=== PATIENT | female | born 1945 | race Caucasian/White ===

== ENCOUNTER → 2019-04-14 | Outpatient (CLI) | payer MEDICARE ==
[~2019-04-14] MED LIST: ALPR0.25; ASPI81TA26 PO; CLOP75TA2 PO; HYDR25TAB PO; ISOS30TAB PO; LORA-674 PO; METF500T13 PO; ONDA4TAB5; RANI150T14 PO; ROSU10TA6 PO; SERT-155 PO; TIZA4TAB4 PO; VALS1TAB66 PO
--- NOTE | 2019-04-14 16:53 | REP ---
Clinical: Right lower extremity pain Technique: Real time up scale and color Doppler evaluation of the right lower extremity arterial vasculature using linear high frequency transducer. Findings: Moderate generalized atherosclerotic changes are appreciated causing monophasic wave patterns from the distal superficial femoral artery to the ankle. PSV(cm/sec) LEFT Common femoral artery 266.1 cm/sec (triphasic) Profunda femoris artery 269.0 cm/sec (biphasic) Proximal superficial femoral artery 141.0 cm/sec (biphasic) Mid superficial femoral artery 108.6 cm/sec (biphasic) Distal superficial femoral artery 137.5 cm/sec (monophasic) Popliteal artery 95.2 cm/sec (monophasic) Proximal HILARIO 33.3 cm/sec (monophasic) Tibioperoneal trunk 92.5 cm/sec (monophasic) Proximal PLASTIC EXTRUDING MACHINE OPERATOR 99.6 cm/sec (monophasic) Distal PLASTIC EXTRUDING MACHINE OPERATOR 100.9 cm/sec (monophasic) Distal HILARIO 26.3 cm/sec (monophasic) Impression: Moderate generalized atherosclerotic changes causing monophasic wave patterns through the right lower extremity arterial structures with low velocity noted through the distal anterior tibial artery. No focal area of stenosis identified. Electronically Signed by Milo Curtis MD 04/14/2019 04:44 P
== END ==
LOC: M RAD 15:37
PROVIDERS: ATTEND Physician Assistant
DX: I70.201 Unspecified atherosclerosis of native arteries of extremities, right leg (principal)

== ENCOUNTER → 2019-04-29 | Outpatient (CLI) | payer MEDICARE ==
[~2019-04-29] MED LIST changes: +ACETAMINOPHEN 325 MG TAB As Ordered ONE; +BUPIVACAINE HCL 0.5% 10 ML VIAL As Ordered ONE; +HEPARIN 1,000 UNITS/ML 10ML VIAL (FOR RADIOLOGY& DIALYSIS ONLY) As Ordered ONE; +ISOVUE-300 61% 50ML VIAL (Q9967) As Ordered ONE; +LIDOCAINE 2% MDV 20 ML VIAL As Ordered ONE; +MIDAZOLAM INJ 2 MG/2 ML VIAL (J2250) As Ordered ONE; +VARE05TA PO; +diphenhydrAMINE INJ 50MG/ML VIAL (J1200) As Ordered ONE; +fentaNYL 100 MCG/2 ML INJECTION (J3010) As Ordered ONE
[2019-04-29 15:49] VITALS: BP 165/70
--- NOTE | 2019-05-28 09:26 | REPIR ---
DATE OF PROCEDURE: 04/29/2019 ATTENDING PHYSICIAN: Dr. Reta Cohen METAL FABRICATION SUPERVISOR: Elke Griffin and Windy Moore PREOPERATIVE DIAGNOSIS: Bilateral lower extremity claudication, right greater than left. Diabetes mellitus. Continued tobacco use with smoking of cigarettes. Right great toe pain and discoloration. 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 POSTOPERATIVE DIAGNOSIS: Bilateral lower extremity claudication, right greater than left. Diabetes mellitus. Continued tobacco use with smoking of cigarettes. Right great toe pain and discoloration. 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 PROCEDURE: Aortogram, iliofemoral angiogram, selective right common femoral artery catheter placement with right lower extremity angiogram, selective right superficial femoral artery catheter placement with right lower extremity angiogram, left lower extremity angiogram via the left common femoral arterial sheath, MYNX closure of the left common femoral arteriotomy using the MYNX closure device. INDICATION: The patient is a 73-year-old female with pain in both lower extremities and diabetes mellitus and tobacco use who will undergo angiography with possible angioplasty stent and/or atherectomy. Risks, benefits and alternative treatment options were discussed with the patient. ANESTHESIA: Local with 20 mL of 2% lidocaine mixed with 0.5% Marcaine, Benadryl 50 mg. FLUORO TIME: 1.5 minutes. CONTRAST: 11 mL of Isovue-300. HEPARIN: None. COMPLICATIONS: None. DRAINS: None. SPECIMENS: None. PROTAMINE: None. IMPLANTS: MYNX closure device used close the arteriotomy in the left common femoral arteriotomy. INDICATIONS FOR PROCEDURE: The patient was taken to the angiography suite, placed supine on the angiography table and then prepped and draped in a standard surgical fashion. Left common femoral artery was cannulated. A catheter was placed in the aorta and aortogram was performed. Catheter was pulled down to the level of the bifurcation of iliac arteries and iliofemoral angiogram was performed. Catheter was directed over the bifurcation, placed in the right common femoral artery and a right lower extremity angiogram was performed. The catheter was advanced into the right superficial femoral artery and a right lower extremity angiogram was performed. Catheters and wires were removed. The left lower extremity angiogram was performed via the left common femoral arterial sheath. The left common femoral arterial sheath was then removed using a MYNX closure device with an additional 10 minutes adjunctive pressure applied for hemostasis. Dressings were then applied. The patient tolerated the procedure well. All instrument, sponge and needle counts were correct at the end the case. There were no complications. Dr. Cohen was present for and directed the entire case. The patient was transferred to the holding area and subsequently discharged in stable condition.
== END ==
LOC: M IRPRO 09:11
PROVIDERS: ATTEND Surgery Vascular Surgery
DX: I70.213 Atherosclerosis of native arteries of extremities with intermittent claudication, bilateral legs (principal); M79.674 Pain in right toe(s); E11.51 Type 2 diabetes mellitus with diabetic peripheral angiopathy without gangrene; Z72.0 Tobacco use
CPT/HCPCS: 36246; 36247; 76000; C1760; C1769; C1887; C1894; G0269; J1200; Q9967

== ENCOUNTER → 2019-05-18 | Outpatient (CLI) | payer MEDICARE ==
[~2019-05-18] MED LIST changes: +LIDOCAINE 1% MDV 20ML VIAL As Ordered ONE; +PROTAMINE SULF INJ 50 MG/5 ML VIAL (J2720) As Ordered ONE
[2019-05-18 13:00] VITALS: BP 144/76
--- NOTE | 2019-05-28 21:46 | REPIR ---
DATE OF PROCEDURE: 05/18/2019 PREOPERATIVE DIAGNOSIS: Right lower extremity claudication. POSTOPERATIVE DIAGNOSIS: Right lower extremity claudication. PROCEDURE: Aortogram, iliofemoral angiogram, bilateral femoral cannulation, right common iliac artery and external iliac artery angioplasty and stent with a 10 x 49 Wallstent postdilated with a 8 x 4 balloon, bilateral 6-Canadian Mynx closure device. SURGEON: Dr. Reta Cohen BURN OUT TENDER LACE: Wes Florentino and Windy Humphreys INDICATION: The patient is a 73-year-old female with right lower extremity claudication and severe aortoiliac calcific atherosclerotic occlusive disease. The patient has a high-grade stenosis in the right common iliac artery and will undergo right common iliac artery and external iliac artery angioplasty and stenting with possible kissing stents. ANESTHESIA: Local with sedation with 2 mg of Versed, 100 mcg of fentanyl and 20 mL of local. Benadryl 50 mg. Flow Time: 1.2 minutes. Contrast: 8 mL. Sedation time was from 8:32 a.m. to 9:05 a.m. for a total 33 minutes. Heparin: 7000 units. Complications: None. Drains: None. Specimens: None. Implants: Right common and external iliac artery Wallstent with a 10 x 49 Wallstent, bilateral 6-Canadian Mynx closure devices DESCRIPTION OF PROCEDURE: The patient was taken to the angiography suite, placed supine on the angiography room table and prepped and draped in a standard surgical fashion. The right common femoral artery was cannulated as well as the left common femoral artery, catheter placed in the aorta and aortogram was performed showing the stenosis in the right iliac artery. The right common and external iliac artery was angioplastied and stented with a 10 x 49 Wallstent, postdilated with an 8 x 4 balloon. There was no intrusion upon the left common iliac artery and kissing stents was not required. The sheaths were removed and bilateral 6-Canadian Mynx closure devices were used to close the arteriotomy with an additional 10 minutes of adjunctive pressure applied for hemostasis. Dressings were then applied. The patient tolerated the procedure well. All instrument, sponge and needle counts were correct at the end of the case. There were no complications. Dr. Cohen was present for and directed the entire case. The patient was transferred to the holding area and subsequently discharged in stable condition.
== END ==
LOC: M IRPRO 06:49
PROVIDERS: ATTEND Surgery Vascular Surgery
DX: I70.211 Atherosclerosis of native arteries of extremities with intermittent claudication, right leg (principal)
CPT/HCPCS: 36246; 37221; 75710; C1725; C1760; C1769; C1876; C1887; C1894; J1200; J2250; J2720; J3010; Q9967

== ENCOUNTER 2019-05-25 09:20 | Emergency (ER) | payer MEDICARE ==
[~2019-05-25] VITALS: Ht 162.6 cm; Wt 93.8 kg
[~2019-05-25 09:20] MED LIST changes: -ACETAMINOPHEN 325 MG TAB As Ordered ONE; -BUPIVACAINE HCL 0.5% 10 ML VIAL As Ordered ONE; -HEPARIN 1,000 UNITS/ML 10ML VIAL (FOR RADIOLOGY& DIALYSIS ONLY) As Ordered ONE; -ISOVUE-300 61% 50ML VIAL (Q9967) As Ordered ONE; -LIDOCAINE 1% MDV 20ML VIAL As Ordered ONE; -LIDOCAINE 2% MDV 20 ML VIAL As Ordered ONE; -MIDAZOLAM INJ 2 MG/2 ML VIAL (J2250) As Ordered ONE; -PROTAMINE SULF INJ 50 MG/5 ML VIAL (J2720) As Ordered ONE; -VARE05TA PO; -diphenhydrAMINE INJ 50MG/ML VIAL (J1200) As Ordered ONE; -fentaNYL 100 MCG/2 ML INJECTION (J3010) As Ordered ONE
[2019-05-25 10:00] LABS: BASO % 0.3 % (0.0-1.0); EOS # 0.5 10^3/uL (0.0-0.50); EOS % 5.1 % (0.0-3.0); HEMATOCRIT 37.5 % (36.0-47.0); HEMOGLOBIN 12.5 g/dl (12.0-15.5); LYMPH # 1.9 10^3/uL (1.5-4.5); LYMPH % 18.5 % (24.0-44.0); MEAN CORPUSCULAR HEMOGLOBIN 31.6 pg (27.0-33.0); MEAN CORPUSCULAR HGB CONC 33.3 g/dl (32.0-36.5); MEAN CORPUSCULAR VOLUME 94.9 fl (80.0-96.0); MONO # 0.7 10^3/uL (0.0-0.8); MONO % 7.1 % (0.0-5.0); NEUTROPHILS % 68.4 % (36.0-66.0); PLATELET COUNT, AUTOMATED 321 10^3/uL (150-450); RED BLOOD COUNT 3.95 10^6/uL (4.00-5.40); WHITE BLOOD COUNT 10.2 10^3/uL (4.0-10.0)
[2019-05-25] MEDS ORDERED: VARE05TA PO (10:00)
[2019-05-25] MEDS ORDERED: ASPIRIN 81 MG CHEW TABLET PO ONE (10:15)
[2019-05-25 10:22] LABS: BLOOD UREA NITROGEN 25 MG/DL (7-18); CALCIUM LEVEL 8.9 MG/DL (8.8-10.2); CARBON DIOXIDE LEVEL 24 MEQ/L (21-32); CHLORIDE LEVEL 101 MEQ/L (98-107); CK-MB VALUE MASS < 1.0 NG/ML (<3.6); CPK CREATINE PHOSPHOKINASE 47 U/L (26-192); CREATININE FOR GFR 1.07 MG/DL (0.55-1.30); GLOMERULAR FILTRATION RATE 53.7 (>39); GLUCOSE, FASTING 146 MG/DL (70-100); MB/CK RELATIVE INDEX 2.13 (< OR =4); POTASSIUM SERUM 4.3 MEQ/L (3.5-5.1); SODIUM LEVEL 134 MEQ/L (136-145); TROPONIN I < 0.02 NG/ML (< 0.10)
[2019-05-25] MEDS ORDERED: NITROGLYCERIN 0.4 MG SUBL TABLET SL PRN (10:30)
--- NOTE | 2019-05-25 10:36 | REP ---
REASON: Chest pain. PRIORS: None. FINDINGS: The technique utilized in obtaining the radiograph has magnified the cardiac silhouette and accentuated the interstitial markings. The superior mediastinal structures are midline. The cardiac silhouette is unremarkable in size, shape, and position. The diaphragmatic surfaces of the lungs are regular, and the costophrenic angles are clear. The pulmonary duncan are clear. The imaged osseous structures are intact. IMPRESSION: There is no acute cardiopulmonary disease. Electronically Signed by Luca Galan DO 05/25/2019 12:27 P
[2019-05-25 10:40] VITALS: BP 161/77
[2019-05-25 12:40] LABS: CK-MB VALUE MASS < 1.0 NG/ML (<3.6); CPK CREATINE PHOSPHOKINASE 37 U/L (26-192); TROPONIN I < 0.02 NG/ML (< 0.10)
[2019-05-25 15:43] LABS: CK-MB VALUE MASS < 1.0 NG/ML (<3.6); CPK CREATINE PHOSPHOKINASE 36 U/L (26-192); MB/CK RELATIVE INDEX 2.78 (< OR =4); TROPONIN I < 0.02 NG/ML (< 0.10)
[2019-05-25] MEDS ORDERED: HEPARIN DRIP 25,000 UNITS in APPROPRIATE DILUENT 1 EA IV SCH (16:36)
[2019-05-25] MEDS ORDERED: HEPARIN SOD (PORCINE) 5000 UNITS/ML VIAL IV ONE (16:45)
[2019-05-25 17:15] LABS: INR 1.01
[2019-05-25 17:16] LABS: PARTIAL THROMBOPLASTIN TIME 31.7 SECONDS (25.0-38.4)
[2019-05-25 19:19] VITALS: BP 148/88
--- NOTE | 2019-05-25 20:44 | ECGEPIP ---
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
--- NOTE | 2019-05-25 20:46 | ECGEPIP ---
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
--- NOTE | 2019-05-25 20:50 | ECGEPIP ---
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
== END 2019-05-25 19:23 | disposition short-term general hospital (02) ==
LOC: M ED 09:20
DX: I20.0 Unstable angina (principal); I73.9 Peripheral vascular disease, unspecified; I44.0 Atrioventricular block, first degree; I25.10 Atherosclerotic heart disease of native coronary artery without angina pectoris; I10 Essential (primary) hypertension; E78.5 Hyperlipidemia, unspecified; J44.9 Chronic obstructive pulmonary disease, unspecified; E11.9 Type 2 diabetes mellitus without complications; Z87.891 Personal history of nicotine dependence; Z79.82 Long term (current) use of aspirin; Z79.84 Long term (current) use of oral hypoglycemic drugs; Z79.899 Other long term (current) drug therapy; Z88.0 Allergy status to penicillin

== ENCOUNTER → 2019-06-29 | Outpatient (CLI) | payer MEDICARE ==
[~2019-06-29] MED LIST changes: +ATOR80TA59 PO; +MM S100C PO; +ONDA-83; -ONDA4TAB5; +PROBCAP14 PO; -SERT-155 PO; +SERT50TA29 PO; +TURM500C3 PO; +VARE05TA PO
--- NOTE | 2019-06-29 15:34 | REP ---
Low-dose lung screening CT of the chest: Comparison is a portable plain film study dated 05/25/2019. The study is performed without IV contrast. The images are presented at lung windowing only. There is a 9 mm ground-glass density in the lingula on image 46. This There are no other lung masses or nodules. There are no infiltrates or effusions. Impression: Category II low-dose lung screening CT of the chest. The probability of malignancy is less than 1%. Annual follow-up low-dose lung screening CT is recommended. Electronically Signed by Duane Garg MD 06/29/2019 03:25 P
--- NOTE | 2019-06-29 15:43 | REP ---
Left lower extremity deep vein duplex ultrasound: The deep veins demonstrate normal compression, normal Doppler color flow and normal Doppler waveforms with respiration and augmentation from the popliteal vein to the common femoral vein. There is no Rodney's cyst. Impression: There is no deep vein thrombus. There is no Rodney's cyst. Electronically Signed by Duane Garg MD 06/29/2019 03:34 P
== END ==
LOC: M RAD 14:28
PROVIDERS: ATTEND Internal Medicine Cardiovascular Disease
DX: J44.9 Chronic obstructive pulmonary disease, unspecified (principal); R91.8 Other nonspecific abnormal finding of lung field; M79.662 Pain in left lower leg; Z87.891 Personal history of nicotine dependence
CPT/HCPCS: 93971; G0297

== ENCOUNTER → 2019-07-16 | Outpatient (REF) | payer MEDICARE ==
[~2019-07-16] MED LIST changes: -ATOR80TA59 PO; -MM S100C PO; -ONDA-83; +ONDA4TAB5; -PROBCAP14 PO; +SERT-155 PO; -SERT50TA29 PO; -TURM500C3 PO
[2019-07-16 17:56] LABS: CREATININE FOR GFR 1.21 MG/DL (0.55-1.30); GLOMERULAR FILTRATION RATE 46.6 (>39)
== END ==
LOC: M LABDRAW1 16:55
PROVIDERS: ATTEND Orthopaedic Surgery
DX: M54.42 Lumbago with sciatica, left side (principal)

== ENCOUNTER → 2019-07-30 | Outpatient (CLI) | payer MEDICARE ==
[~2019-07-30] MED LIST changes: -SERT-155 PO; +SERT50TA29 PO
--- NOTE | 2019-07-30 12:27 | REP ---
Bilateral lower extremity arterial Doppler ultrasound: History: Atherosclerosis with intermittent claudication. Findings: Ankle brachial indices are measured at 0.82 on the right and 0.85 on the left. Moderate plaquing is observed bilaterally. It is essentially normal waveforms are seen throughout the exception of monophasic wave form in the distal AT A on the right. There is evidence of increased velocity indicating some degree of stenosis in the right mid superficial femoral artery, the right popliteal artery, and the left proximal superficial femoral artery. There is evidence of a stent in the mid superficial femoral artery on the left. Velocity chart right lower extremity arteries: Right CF A 141 cm/S Profunda 157 Proximal SFA 112 Mid SFA 120/416 Distal SFA 108 Popliteal 93/355 Proximal AT A 40 Tibioperoneal trunk 89 Proximal RESIDENTIAL SALES REPRESENTATIVE 85 Distal RESIDENTIAL SALES REPRESENTATIVE 65 Distal AT A 7/17 Velocity chart left lower extremity arteries: Left CF A 106 cm/S Profunda 171 Proximal SFA 104/389 Mid SFA 132 Distal SFA 146 Popliteal 39 Proximal AT A 45 Tibioperoneal trunk 42 Proximal RESIDENTIAL SALES REPRESENTATIVE 53 Distal RESIDENTIAL SALES REPRESENTATIVE 44 Distal AT A 25 Electronically Signed by Bruce Sullivan MD 07/30/2019 12:18 P
== END ==
LOC: M RAD 08:17
PROVIDERS: ATTEND Physician Assistant
DX: I70.213 Atherosclerosis of native arteries of extremities with intermittent claudication, bilateral legs (principal); Z95.820 Peripheral vascular angioplasty status with implants and grafts

== ENCOUNTER → 2019-07-31 | Outpatient (CLI) | payer MEDICARE ==
--- NOTE | 2019-07-31 16:55 | REP ---
MRI lumbar spine: 08/01/2019. Indication: Lumbar radiculopathy. Comparison: None. Technique: Multiplanar short and long TR sequences of the lumbar spine were obtained including post-gadolinium images. 9 ml of IV ProHance were administered. Findings: Vertebral body alignment is anatomic. Disc space narrowing and desiccation are present at L5/S1. Dessication is additionally noted throughout with exception of L4/L5. No worrisome marrow signal is present. There are no areas of pathologic gadolinium enhancement. The paraspinal soft tissues are unremarkable. L1/L2: There is no disc herniation or significant spinal canal / neural foraminal narrowing. L2/L3: There is no disc herniation or significant spinal canal / neural foraminal narrowing. L3/L4: Mild diffuse disc bulge is present with effacement of the ventral thecal sac. The neural foramen are patent. L4/L5: Unremarkable. L5/S1: Diffuse disc and spur complex is present most pronounced anteriorly on the left. There is mild spinal canal and bilateral neural foraminal narrowing. Impression: Degenerative sequelae most pronounced at L5/S1 without nerve root compression or significant spinal canal narrowing. Electronically Signed by Kye Valle DO 07/31/2019 04:46 P
== END ==
LOC: M PLARAD 13:43
PROVIDERS: ATTEND Orthopaedic Surgery
DX: M51.26 Other intervertebral disc displacement, lumbar region (principal); M51.36 Other intervertebral disc degeneration, lumbar region; M54.42 Lumbago with sciatica, left side; M25.78 Osteophyte, vertebrae

== ENCOUNTER → 2019-08-06 | Outpatient (CLI) | payer MEDICARE ==
[2019-08-06 15:16] LABS: HEMATOCRIT 36.3 % (36.0-47.0); HEMOGLOBIN 11.7 g/dl (12.0-15.5); MEAN CORPUSCULAR HEMOGLOBIN 30.9 pg (27.0-33.0); MEAN CORPUSCULAR HGB CONC 32.2 g/dl (32.0-36.5); MEAN CORPUSCULAR VOLUME 95.8 fl (80.0-96.0); PLATELET COUNT, AUTOMATED 364 10^3/uL (150-450); RED BLOOD COUNT 3.79 10^6/uL (4.00-5.40); WHITE BLOOD COUNT 10.7 10^3/uL (4.0-10.0)
[2019-08-06 15:38] LABS: CALCIUM LEVEL 9.5 MG/DL (8.8-10.2); CREATININE FOR GFR 1.16 MG/DL (0.55-1.30); GLOMERULAR FILTRATION RATE 48.9 (>39); POTASSIUM SERUM 4.1 MEQ/L (3.5-5.1)
== END ==
LOC: M LAB 14:41
PROVIDERS: ATTEND Physician Assistant
DX: I70.211 Atherosclerosis of native arteries of extremities with intermittent claudication, right leg (principal)

== ENCOUNTER → 2019-08-17 | Outpatient (CLI) | payer MEDICARE ==
[2019-08-17 13:53] LABS: CREATININE FOR GFR 1.21 MG/DL (0.55-1.30); GLOMERULAR FILTRATION RATE 46.6 (>39)
== END ==
LOC: M LAB 12:59
PROVIDERS: ATTEND Physician Assistant
DX: I70.211 Atherosclerosis of native arteries of extremities with intermittent claudication, right leg (principal); F17.210 Nicotine dependence, cigarettes, uncomplicated

== ENCOUNTER → 2019-08-20 | Outpatient (CLI) | payer MEDICARE ==
[~2019-08-20] MED LIST changes: +ISOVUE-370 76% 100ML VIAL (Q9967) As Ordered ONE
--- NOTE | 2019-08-20 10:22 | REP ---
CT angiography of the abdominal aorta and lower extremity runoff arteries with IV contrast: History: Atherosclerosis of the teller arteries with claudication in the right leg. Nicotine dependence. The patient gives a history of a right femoral bypass. There is also history of breast carcinoma on the left. 100 ml of intravenous Isovue 370 is administered. Nonvascular findings: Preliminary rn admit radiograph demonstrates a right knee arthroplasty. The heart is mildly prominent. There is mild fatty infiltration of the liver. There is left colonic diverticulosis. Uterus is surgically absent. Angiographic findings: There is an arterial anatomic variant in the distribution of the celiac circulation. Of the gastroduodenal, left gastric, and splenic arteries, all appear to take a direct aortic origin above this origin of the SMA. There is evidence of stenosis at the origin of the gastroduodenal and left gastric arteries. There is some plaquing in the proximal SFA but no high-grade stenosis is seen. Infrarenal and suprarenal abdominal aorta show atherosclerotic plaquing but no aneurysm. There is high-grade stenosis at the origin of the left renal artery. The left kidney is somewhat atrophic. There is a right a iliac artery stent noted at the origin of the common iliac artery and extending distally to the proximal aspect of the external iliac artery. The stent and the iliac arteries are patent bilaterally. The internal iliac arteries are patent although their origins are fairly heavily calcified. There is calcification bilateral external iliac arteries. Diffuse atherosclerotic plaquing is seen in the distal arteries. The common femoral and proximal profunda and superficial femoral arteries are patent bilaterally. There is a patent stent in the left superficial femoral artery with plaquing above and below it. There is a focal high-grade stenosis in the right superficial femoral artery in the level of the adductor canal. There is spray artifact at the level of the popliteal artery on the right obscuring it. Below the arthroplasty, the tibioperoneal trunk and three-vessel calf arteries show contrast enhancement consistent with patency. The posterior tibial artery is seen crossing the ankle. The anterior tibial artery is not well seen. On the left, there is atherosclerotic calcification and some narrowing of the popliteal artery. Tibioperoneal trunk anterior, posterior and peroneal arteries appear patent in the proximal calf. The distal calf shows a patent posterior tibial artery and anterior tibial artery crossing the ankle. Impression: Patent right common and external iliac artery and left superficial femoral artery stents. Diffuse atherosclerotic calcification. High-grade right SFA stenosis at the level of the adductor canal. The anatomic variant at the origin of the celiac artery components as above. There is a high-grade stenosis at the origin of the left renal artery. The left kidney is somewhat smaller than right. Electronically Signed by Bruce Sullivan MD 08/20/2019 12:55 P
== END ==
LOC: M RAD 07:45
PROVIDERS: ATTEND Physician Assistant
DX: I70.211 Atherosclerosis of native arteries of extremities with intermittent claudication, right leg (principal); F17.210 Nicotine dependence, cigarettes, uncomplicated
CPT/HCPCS: 75635; Q9967

== ENCOUNTER → 2019-11-10 | Outpatient (CLI) | payer MEDICARE ==
[~2019-11-10] MED LIST changes: +ACETAMINOPHEN TAB 650MG DOSE (2X325MG) PO PRN; +ATOR80TA59 PO; +CLOPIDOGREL 75 MG TAB As Ordered ONE; +CLOPIDOGREL 75 MG TAB PO ONE; +HEPARIN 1,000 UNITS/ML 10ML VIAL (FOR RADIOLOGY& DIALYSIS ONLY)(J1644-10) As Ordered ONE; +ISOVUE-300 61% 50ML VIAL (Q9967) As Ordered ONE; -ISOVUE-370 76% 100ML VIAL (Q9967) As Ordered ONE; +LIDOCAINE 1% MDV 20ML VIAL As Ordered ONE; +MIDAZOLAM INJ 2 MG/2 ML VIAL (J2250) As Ordered ONE; +MM S100C PO; +NS 1,000 ML IV SCH; +ONDA-83; -ONDA4TAB5; +ONDANSETRON 4MG/2ML VIAL (J2405) As Ordered ONE; +PERCOCET 5MG/325MG TAB As Ordered ONE; +PERCOCET 5MG/325MG TAB PO ONE; +PROBCAP14 PO; +TURM500C3 PO; +fentaNYL 100 MCG/2 ML INJECTION (J3010) As Ordered ONE; +hydrALAZINE INJ 20 MG/ML VIAL As Ordered ONE
[2019-11-10 09:30] LABS: HEMATOCRIT 36.3 % (36.0-47.0); HEMOGLOBIN 11.6 g/dl (12.0-15.5); MEAN CORPUSCULAR HEMOGLOBIN 29.9 pg (27.0-33.0); MEAN CORPUSCULAR VOLUME 93.6 fl (80.0-96.0); PLATELET COUNT, AUTOMATED 319 10^3/uL (150-450); RED BLOOD COUNT 3.88 10^6/uL (4.00-5.40); WHITE BLOOD COUNT 9.5 10^3/uL (4.0-10.0)
[2019-11-10 09:47] LABS: BILIRUBIN,TOTAL 0.3 MG/DL (0.2-1.0); CALCIUM LEVEL 9.5 MG/DL (8.8-10.2); CREATININE FOR GFR 1.19 MG/DL (0.55-1.30); GLOMERULAR FILTRATION RATE 47.3 (>39); POTASSIUM SERUM 4.4 MEQ/L (3.5-5.1); TOTAL PROTEIN 7.2 GM/DL (6.4-8.2)
--- NOTE | 2019-11-10 12:07 | ROOPDOC ---
[facility] Report Of Operation Report of Operation DATE OF PROCEDURE: 11/10/19 PREPROCEDURE DIAGNOSES: Atherosclerosis the [place] vessels with lifestyle limiting claudication left lower extremity and pain in foot. POSTPROCEDURE DIAGNOSES: Same PROCEDURE: 1. Ultrasound-guided access left common femoral artery and right common femoral artery 2. Conversion of pre-existing right aortoiliac stent to bilateral iliac kissing stents, 8 x 37 VBX stents placed bilaterally and postdilated with 10 x 40 [employer] balloons 3. Stenting of the left common iliac artery and external iliac artery with 9 x 57 and 8 x 57 express balloon expandable stent 4. Completion arteriograms 5. Left lower extremity runoff through left sheath access 6. Mynx closure bilateral femoral arteries SURGEON: Raymond Danielle MD ANESTHESIA: Local anesthesia 10 mL lidocaine. Moderate intravenous conscious sedation was supervised by Dr. Danielle. The patient was independently monitored by a registered nurse assigned to the Department of radiology using automated blood pressure, EKG, and pulse oximetry. The detailed sedation record is permanently stored in the hospital information system. The following is the brief sedation record: Start time 10:44, stop time 11:40, fentanyl 100 g IV, Versed 2 mg IV, hydralazine 20 mg IV, Zofran 4 mg IV, heparin 5000 units IV. CONTRAST: 50 mL Isovue-300 INDICATION FOR PROCEDURE: This is a very pleasant 74-year-old patient with known peripheral vascular disease and worsening claudication in the left lower extremity with near constant pain in her foot. It is unclear if the pain in her foot is neuropathic or related to blood flow, but she definitely has limitations of arterial flow in the left lower extremity. She has a pre-existing right aortoiliac wallstent placed by Dr. Cohen, and it crosses the origin of the left common iliac artery and partially jails the inflow. We discussed the risks benefits and alternatives to converting the stent to bilateral iliac kissing stents and extending the iliac stents as needed to improve inflow to the left lower extremity. She also has a history of the left superficial femoral artery stent, and we will perform a runoff of the left lower extremity to see if there is any significant disease within or near the stent, or significant stenoses that may require additional intervention. I am hopeful however that the patient will have adequate improvement in her symptoms with inflow stenting and angioplasty alone, because after this procedure she would need an antegrade access to treat any left lower extremity disease, and her vessels are very calcified, she is obese, and antegrade access would be challenging. After going over all the risks and benefits and alternatives, the patient was agreeable to proceed with iliac intervention. Informed consent was obtained. INTERPRETATION: 1. The distal aorta is ectatic. The right common iliac artery stent extends into the aorta across the origin of the left common iliac artery, but the stent is widely patent. There appears to be good flow through the right iliac system. The left iliac artery flow is diminished due to the position of the right common il iac artery stent, and there appears to be significant disease and stenosis within the common and external iliac artery, especially near the origin of the hypogastric. 2. After kissing 8 x 39 VBX stents were placed and postdilated with 10 x 40 [employer] balloons, there was excellent even inflow to both iliac systems. There was still significant residual stenosis in the untreated aspect of the common iliac artery distal to the left stent, and at the external iliac artery hypogastric bifurcation. After stenting the common iliac with an overlapped 9 x 57 express stent and the distal common iliac proximal external iliac with an overlap 8 x 57 express stent, there was widely patent flow through the stents with no residual stenosis. Bulky calcified plaque from the external iliac artery partially occluded the origin of the hypogastric on the left after stenting, but there was flow distal to this through the vessel. 3. The left common femoral artery and profunda are widely patent. The SFA is ectatic and has a 70% stenosis proximal to the existing mid SFA stent, the stent itself has some intimal hyperplasia, mild, and distal to this the vessel is ectatic but patent. There is good flow through the popliteal artery and the main runoff is through the posterior tibial artery and peroneal which runoff rapidly to the foot, but there is occlusion in the proximal anterior tibial artery and it refills distally through collaterals from the peroneal with runoff through the dorsal pedis artery. REPORT OF OPERATION: The patient was brought to the angiographic suite in stable condition. Her bilateral groins were prepped and draped in sterile fashion. A timeout was performed. Sedation was a injection molding machine offbearer without complication. Local anesthesia was a injection molding machine offbearer to the skin and subcutaneous tissue over the left common femoral artery and a microneedle was used to access the artery under ultrasound guidance. A wire was passed through this access and the needle was removed. Micro-sheath was placed and through the [place] Glidewire was advanced into the aorta under fluoroscopic guidance. We then placed a 7 Faroese sheath over the wire using the Seldinger technique and flushed sheath with saline. The same access procedure was performed on the right side and a 7 Faroese sheath was placed and flushed with saline. An Omni flushed catheter was advanced into the aorta and and aortoiliofemoral arteriogram was performed, please see interpr etation above. 8 x 37 VBX covered balloon-expandable stents were placed from the distal aorta into the common iliac artery and deployed S kissing stents. They were then oversized with 10 x 40 [employer] balloons and there was good inflow to both vessels following stent placement. Next, arteriograms confirmed there was still significant iliac disease distal to the stent on the left. We first bridged with a 1 cm overlap in the common iliac artery with a 9 x 57 express stent, and then across the distal common iliac proximal external iliac with an 8 x 57 express balloon-expandable stent. There was a dramatic improvement in inflow after the stents were placed. We did notice some of the heavy plaque at the external iliac artery hypogastric bifurcation was partially occluding the inflow to the hypogastric, but there was flow distal to this. Next, we performed a runoff of the left lower extremity through the existing stent, please see interpretation above. Following this, we deployed Mynx closure devices in both common femoral arteries with good hemostasis. During the procedure, the patient had a lot of anxiety despite sedation, and has a history of severe anxiety. Her blood pressure was elevated during the case and we gave 2 doses of hydralazine 10 mg, and postprocedure her pressure came down nicely to 150 systolic. She also had some nausea towards the end of the procedure which was improved with 4 mg of Zofran. Postprocedure her anxiety resolved and she said she felt much better. Pressure was held for 10 minutes and both gradient and the patient was taken to recovery in stable condition. ESTIMATED BLOOD LOSS: Approximately 10 mL. COMPLICATIONS: None. PLAN: Okay for patient to resume home diet medications, and we will give her her first dose of Plavix in recovery and she will resume her home Plavix tomorrow. We will bring her back in a week to check her groin access sites and see how she is doing. She does have a tight spot proximal to her existing stent in the left superficial femoral artery, but I am hopeful that improving inflow will be enough to resolve her claudication and help with her foot pain if it was in fact related to arterial insufficiency. She would be an extremely challenging antegrade procedure due to obesity, heavily calcified vessels, and I think it w ould be best to avoid this procedure if possible, especially in light of the amount of anxiety she had with the procedure today. Hopefully she will see a significant improvement after the procedure today. RAYMOND DANIELLE MD Nov 10, 2019 12:07
[2019-11-10 13:51] LABS: CK-MB VALUE MASS < 1.0 NG/ML (<3.6); CPK CREATINE PHOSPHOKINASE 69 U/L (26-192); MB/CK RELATIVE INDEX 1.45 (< OR =4); TROPONIN I < 0.02 NG/ML (< 0.10)
[2019-11-10 15:58] VITALS: BP 169/74
--- NOTE | 2019-11-13 00:29 | ECGEPIP ---
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
== END ==
LOC: M IRPRO 08:23
PROVIDERS: ATTEND Surgery Vascular Surgery
DX: I70.212 Atherosclerosis of native arteries of extremities with intermittent claudication, left leg (principal); I70.222 Atherosclerosis of native arteries of extremities with rest pain, left leg; I10 Essential (primary) hypertension; E78.00 Pure hypercholesterolemia, unspecified; E11.9 Type 2 diabetes mellitus without complications; M54.30 Sciatica, unspecified side; Z79.82 Long term (current) use of aspirin; Z79.84 Long term (current) use of oral hypoglycemic drugs; Z79.899 Other long term (current) drug therapy; Z88.0 Allergy status to penicillin; Z88.8 Allergy status to other drugs, medicaments and biological substances
CPT/HCPCS: 36415; 37221; 37223; 75710; 80053; 82550; 82553; 84484; 85027; 93005; 99152; 99153; C1725; C1760; C1769; C1874; C1876; C1887; C1894; J1644; J2250; J2405; J3010; Q9967

== ENCOUNTER → 2019-11-24 | Outpatient (CLI) | payer MEDICARE ==
[~2019-11-24] MED LIST changes: -ACETAMINOPHEN TAB 650MG DOSE (2X325MG) PO PRN; -CLOPIDOGREL 75 MG TAB As Ordered ONE; -CLOPIDOGREL 75 MG TAB PO ONE; +E-Z-GAS II EFFERVESCENT PACKET (SODIUM BICARB./CITRIC ACID/SIMETHICONE) As Ordered ONE; +E-Z-HD 98% w/w 340GM SUSP BTL As Ordered ONE; +E-Z-PAQUE 96% w/w SUSP 176GM BTL As Ordered ONE; -HEPARIN 1,000 UNITS/ML 10ML VIAL (FOR RADIOLOGY& DIALYSIS ONLY)(J1644-10) As Ordered ONE; -ISOVUE-300 61% 50ML VIAL (Q9967) As Ordered ONE; -LIDOCAINE 1% MDV 20ML VIAL As Ordered ONE; -MIDAZOLAM INJ 2 MG/2 ML VIAL (J2250) As Ordered ONE; -NS 1,000 ML IV SCH; -ONDANSETRON 4MG/2ML VIAL (J2405) As Ordered ONE; -PERCOCET 5MG/325MG TAB As Ordered ONE; -PERCOCET 5MG/325MG TAB PO ONE; -fentaNYL 100 MCG/2 ML INJECTION (J3010) As Ordered ONE; -hydrALAZINE INJ 20 MG/ML VIAL As Ordered ONE
--- NOTE | 2019-11-24 20:02 | REP ---
Esophagram The procedure was performed under the direct supervision of Dr. Sullivan. The images were reviewed with Dr. Sullivan. A single view PA chest x-ray is submitted as a cavity pump operator film. The superior mediastinal structures are midline. The heart size is within normal limits. The lungs are clear. There are surgical clips noted in the left axilla. Liquid barium and gas producing granules were given in the erect position as well as liquid barium in the prone oblique positions in order to perform a double contrast esophagram examination. The oral and pharyngeal stages of deglutition are unremarkable. During esophageal transport there are mild tertiary waves demonstrated. There is no esophagitis stricture or mucosal ring. There is a sliding type hiatal hernia. There is gastroesophageal reflux demonstrated to the level of the thoracic inlet. Impression: 1. Mild tertiary waves. 2. There is a sliding type hiatal hernia. There is gastroesophageal reflux demonstrated to the level of the thoracic inlet. 0.8 minutes of fluoro time was utilized for this procedure. Electronically Signed by EDNA Shukla 11/24/2019 04:35 P Electronically Signed by Bruce Sullivan MD 11/24/2019 07:52 P
== END ==
LOC: M RAD 07:44
PROVIDERS: ATTEND Specialist
DX: R13.10 Dysphagia, unspecified (principal)

== ENCOUNTER → 2020-04-19 | Outpatient (CLI) | payer MEDICARE ==
[~2020-04-19] MED LIST changes: -E-Z-GAS II EFFERVESCENT PACKET (SODIUM BICARB./CITRIC ACID/SIMETHICONE) As Ordered ONE; -E-Z-HD 98% w/w 340GM SUSP BTL As Ordered ONE; -E-Z-PAQUE 96% w/w SUSP 176GM BTL As Ordered ONE
--- NOTE | 2020-04-20 07:27 | REP ---
BILATERAL EXAM: REASON: History of peripheral artery disease. RIGHT: Right side ankle-brachial index 0.9. ARTERY PEAK SYSTOLIC VELOCITY PHASICITY MACHINE CAGE MAKER 218-272 cm/s Monophasic Profunda 161.4 cm/s Biphasic SFA proximal 135.4 cm/s Monophasic SFA mid 111.8-256.7 cm/s Monophasic SFA distal 92.0 cm/s Monophasic Popliteal 75.4 cm/s Monophasic HILARIO proximal 92.4 cm/s Monophasic Tibioperoneal trunk 75.9 cm/s Monophasic POSTAGE MACHINE OPERATOR proximal 64.4 cm/s Monophasic POSTAGE MACHINE OPERATOR distal 90.3 cm/s Monophasic HILARIO distal 40.8 cm/s Monophasic LEFT: The left ankle-brachial index is 0.8. ARTERY PEAK SYSTOLIC VELOCITY PHASICITY MACHINE CAGE MAKER 141.8 cm/s Triphasic Profunda 105.9 cm/s Triphasic SFA proximal 123.8-287.6 cm/s Monophasic SFA mid 148.5 cm/s Monophasic SFA distal 74.9 cm/s Monophasic Popliteal 43.8 cm/s Monophasic HILARIO proximal 57.4 cm/s Monophasic Tibioperoneal trunk 48.1 cm/s Monophasic POSTAGE MACHINE OPERATOR proximal 139.0 cm/s Monophasic POSTAGE MACHINE OPERATOR distal 70.0 cm/s Monophasic HILARIO distal 27.1 cm/s Biphasic Moderate to severe plaque was seen bilaterally. Electronically Signed by Luca Galan DO 04/20/2020 09:29 A
== END ==
LOC: M RAD 11:35
PROVIDERS: ATTEND Physician Assistant
DX: I73.9 Peripheral vascular disease, unspecified (principal); F17.210 Nicotine dependence, cigarettes, uncomplicated

== ENCOUNTER → 2020-10-31 | Outpatient (CLI) | payer MEDICARE ==
[~2020-10-31] MED LIST changes: +HYDR-3490 PO; -HYDR25TAB PO
--- NOTE | 2020-10-31 12:22 | REP ---
INDICATION: CLAUDICATION. COMPARISON: Comparison study April 19, 2020.. TECHNIQUE: Bilateral lower extremity arterial Doppler ultrasound exam. FINDINGS: Ankle brachial indices are measured at 0.9 on the right and 0.8 on the left unchanged from the comparison study. In the right mid superficial femoral artery, there is a 3-1 velocity ratio stenosis. Monophasic waveforms are noted in the right lower extremity arteries at and below the popliteal. On the left, monophasic waveforms are noted in the tibial-peroneal trunk and anterior and posterior tibial arteries. The mid anterior tibial artery on the left shows an occlusion with revascularize flow reversal. Normal flow is seen below this. Right lower extremity arterial Doppler velocity chart: Right FOOD PREPARATION WORKER PSV 192 cm/S Profundal 208 Proximal SFA 97 Mid SFA 322 Distal SFA 78 Popliteal 74 Proximal HILARIO 41 Tibial-peroneal trunk 69 Proximal GROCERY DEPARTMENT MANAGER 58 Distal GROCERY DEPARTMENT MANAGER 82 Distal HILARIO 16 Left lower extremity arterial Doppler velocity chart: Left FOOD PREPARATION WORKER PSV 186 cm/S Profundal 191 Proximal SFA 119 Mid SFA 125 Distal SFA 116 Popliteal 45 Proximal HILARIO 35 Tibial-peroneal trunk 78 Proximal GROCERY DEPARTMENT MANAGER 105 Distal GROCERY DEPARTMENT MANAGER 89 Distal HILARIO reversed flow. IMPRESSION: Bilateral lower extremity arterial atherosclerotic changes as above. Stenotic flow velocity is observed in the mid SFA on the right. <Electronically signed by Gagandeep Sullivan > 10/31/20 [id number]
== END ==
LOC: M RAD 10:31
PROVIDERS: ATTEND Physician Assistant
DX: I70.211 Atherosclerosis of native arteries of extremities with intermittent claudication, right leg (principal); I70.202 Unspecified atherosclerosis of native arteries of extremities, left leg

== ENCOUNTER → 2022-03-01 | Outpatient (CLI) | payer MEDICARE ==
[~2022-03-01] MED LIST changes: +TIZA10TA PO; -TIZA4TAB4 PO
== END ==
LOC: M SLEEP HO 13:30
PROVIDERS: ATTEND Physician Assistant
DX: R53.83 Other fatigue (principal)

== ENCOUNTER 2024-06-16 00:18 | Inpatient (IN) | payer MEDICARE ==
[~2024-06-16] VITALS: Ht 162.6 cm; Wt 83.4 kg
[~2024-06-16 00:18] MED LIST changes: +LORA-1041 PO; -LORA-674 PO; -ROSU10TA6 PO; +ROSU10TA61 PO
[2024-06-16 01:30] VITALS: BP 174/82; TEMP 97.3; O2SAT 97
[2024-06-16] MEDS ORDERED: MOM 30ML SUSPENSION UDC PO PRN (02:50)
[2024-06-16] MEDS ORDERED: ACETAMINOPHEN TAB 650MG DOSE (2X325MG) PO PRN (02:50)
[2024-06-16] MEDS ORDERED: MAALOX 30 ML SUSP *UDC PO PRN (02:50)
[2024-06-16] MEDS ORDERED: NICOTINE 7 MG/24 HR TRANSDERMAL TD PRN (03:10)
[2024-06-16] MEDS ORDERED: GLUCOSE 4 GM CHEW PO PRN (03:20)
[2024-06-16] MEDS ORDERED: DEXTROSE 50% 50ML SYRINGE IV PRN (03:20)
[2024-06-16] MEDS ORDERED: GLUCAGON INJ 1MG VIAL SC PRN (03:20)
[2024-06-16] MEDS ORDERED: XANA0.25 PO (03:23)
[2024-06-16] MEDS ORDERED: GLIP5TAB17 PO (03:23)
[2024-06-16] MEDS ORDERED: SEMA2PEN SQ (03:23)
[2024-06-16] MEDS ORDERED: APAP325T4 PO (03:23)
[2024-06-16] MEDS ORDERED: ONDA-83 PO (03:23)
[2024-06-16] MEDS ORDERED: MULT-90 PO (03:23)
[2024-06-16] MEDS ORDERED: NITR0.4S14 SL (03:23)
[2024-06-16 03:58] LABS: HEMATOCRIT 37.5 % (36.0-47.0); HEMOGLOBIN 12.8 g/dl (12.0-15.5); MEAN CORPUSCULAR HEMOGLOBIN 31.6 pg (27.0-33.0); MEAN CORPUSCULAR HGB CONC 34.1 g/dl (32.0-36.5); MEAN CORPUSCULAR VOLUME 92.6 fl (80.0-96.0); PLATELET COUNT, AUTOMATED 322 10^3/uL (150-450); RED BLOOD COUNT 4.05 10^6/uL (4.00-5.40); WHITE BLOOD COUNT 12.9 10^3/uL (4.0-10.0)
[2024-06-16 04:10] LABS: INR 0.98; PARTIAL THROMBOPLASTIN TIME 31.8 SECONDS (24.8-34.2); PROTHROMBIN TIME 12.7 SECONDS (12.5-14.5)
[2024-06-16 04:16] VITALS: BP 174/66; TEMP 97.3; O2SAT 93
[2024-06-16 04:20] LABS: CK-MB VALUE MASS < 1.0 NG/ML (<3.6)
[2024-06-16 04:21] LABS: ALBUMIN 3.5 G/DL (3.2-5.2); BILIRUBIN,TOTAL 0.4 MG/DL (0.3-1.2); CALCIUM LEVEL 9.1 MG/DL (8.3-10.6); CREATININE FOR GFR 1.29 MG/DL (0.55-1.30); GLOMERULAR FILTRATION RATE 42.7 (>39); MAGNESIUM LEVEL 1.8 MG/DL (1.8-2.4); POTASSIUM SERUM 3.6 MMOL/L (3.5-5.1); TOTAL PROTEIN 6.5 G/DL (5.7-8.2)
[2024-06-16 04:25] LABS: CPK CREATINE PHOSPHOKINASE 30 U/L (34-145); MB/CK RELATIVE INDEX 3.33 (< OR =4)
[2024-06-16] MEDS: LR 1,000 ML IV SCH (04:59)
[2024-06-16 05:22] LABS: PROCALCITONIN 0.06 ng/ml
[2024-06-16] MEDS ORDERED: ISOS1TAB35 PO (05:51)
[2024-06-16] MEDS ORDERED: CLOP75TA2 PO (05:51)
[2024-06-16] MEDS ORDERED: ATOR80TA59 PO (05:51)
[2024-06-16] MEDS ORDERED: ALPR0.25 PO (05:51)
[2024-06-16] MEDS ORDERED: VALS1TAB67 PO (05:53)
[2024-06-16] MEDS ORDERED: BYDU2INJ7 INJ (05:54)
[2024-06-16] MEDS ORDERED: HOME MED LIST COMPLETE! XX SCH (05:55)
[2024-06-16] MEDS: INSULIN LISPRO (NovoLOG) PER UNIT SC SCH (08:27)
[2024-06-16] MEDS: PANTOPRAZOLE 40MG VIAL IV SCH (08:27)
[2024-06-16] MEDS: MOM 30ML SUSPENSION UDC PO PRN (08:28)
[2024-06-16] MEDS: MIRALAX *UNIT DOSE* 17GM PACKET PO SCH (08:29)
[2024-06-16] MEDS: DOCUSATE SODIUM 100MG CAPSULE PO SCH (08:29)
[2024-06-16] MEDS: ENOXAPARIN 40MG/0.4ML SYRINGE (J1650 PER 10MG) SC SCH (08:29)
[2024-06-16] MEDS ORDERED: ALPRAZolam 0.25 MG TAB PO PRN (08:40)
[2024-06-16 10:15] VITALS: BP 129/49
[2024-06-16] MEDS: LORATADINE 10 MG TAB PO SCH (10:18)
[2024-06-16] MEDS: tiZANidine 4 MG TAB PO SCH (10:18)
[2024-06-16] MEDS: ASPIRIN 81MG ENTERIC TABLET PO SCH (10:19)
[2024-06-16 12:30] LABS: CALCIUM LEVEL 9.7 MG/DL (8.3-10.6); CREATININE FOR GFR 1.21 MG/DL (0.55-1.30); GLOMERULAR FILTRATION RATE 45.9 (>39); POTASSIUM SERUM 3.9 MMOL/L (3.5-5.1)
[2024-06-16 13:04] VITALS: BP 162/70
[2024-06-16] MEDS ORDERED: OMEP40CA4 PO (13:04)
[2024-06-16] MEDS ORDERED: MIRA33506 PO (13:04)
[2024-06-16] MEDS ORDERED: SENO8.6T5 PO (13:04)
[2024-06-16] MEDS ORDERED: COLA100C5 PO (13:04)
[2024-06-16 13:23] VITALS: BP 134/68; TEMP 97.7; O2SAT 97
[2024-06-16] MEDS ORDERED: ISOSORBIDE MON. (IMDUR) 30MG XR TAB PO SCH (21:00)
[2024-06-16] MEDS ORDERED: CLOPIDOGREL 75 MG TAB PO SCH (21:00)
[2024-06-16] MEDS ORDERED: SENNA 8.6 MG TAB (SENOKOT) PO SCH (21:00)
[2024-06-16] MEDS ORDERED: INSULIN LISPRO (NovoLOG) PER UNIT SC SCH (21:00)
[2024-06-16] MEDS ORDERED: ATORVASTATIN 20 MG TAB PO SCH (21:00)
[2024-06-16] MEDS ORDERED: VALSARTAN 80 MG TAB (DIOVAN) PO SCH (21:00)
== END 2024-06-16 14:02 | disposition home or self-care (01) | DRG 392 ==
LOC: M MS5PR 01:30
PROVIDERS: ADMIT Family Medicine; ATTEND Internal Medicine
DX: K29.70 Gastritis, unspecified, without bleeding (principal); N17.9 Acute kidney failure, unspecified; E87.1 Hypo-osmolality and hyponatremia; K55.1 Chronic vascular disorders of intestine; E86.0 Dehydration; I25.10 Atherosclerotic heart disease of native coronary artery without angina pectoris; I25.2 Old myocardial infarction; F41.9 Anxiety disorder, unspecified; K59.00 Constipation, unspecified; E11.51 Type 2 diabetes mellitus with diabetic peripheral angiopathy without gangrene; E78.5 Hyperlipidemia, unspecified; E83.42 Hypomagnesemia; I10 Essential (primary) hypertension; B02.9 Zoster without complications; F17.210 Nicotine dependence, cigarettes, uncomplicated; N26.1 Atrophy of kidney (terminal); Z79.82 Long term (current) use of aspirin; Z98.62 Peripheral vascular angioplasty status; Z79.02 Long term (current) use of antithrombotics/antiplatelets; Z79.84 Long term (current) use of oral hypoglycemic drugs; Z79.899 Other long term (current) drug therapy; Z88.0 Allergy status to penicillin; Z88.8 Allergy status to other drugs, medicaments and biological substances; Z85.3 Personal history of malignant neoplasm of breast; Z95.5 Presence of coronary angioplasty implant and graft; Z90.49 Acquired absence of other specified parts of digestive tract; Z96.651 Presence of right artificial knee joint

== ENCOUNTER 2024-07-08 07:55 | Day surgery (SDC) | payer MEDICARE ==
[~2024-07-08] VITALS: Ht 152.4 cm; Wt 87.9 kg
[~2024-07-08 07:55] MED LIST changes: +ALPR0.25 PO; +APAP325T4 PO; +BYDU2INJ7 INJ; +COLA100C5 PO; +GLIP5TAB17 PO; +ISOS1TAB35 PO; +MIDAZOLAM INJ 2MG/2ML VIAL As Ordered ONE; +MIRA33506 PO; +MULT-90 PO; +NITR0.4S14 SL; +OMEP40CA4 PO; +ONDA-83 PO; +PHENYLEPHRINE 10% OPHTH SOL 5ML OS PRN; +SEMA2PEN SQ; +SENO8.6T5 PO; +VALS1TAB67 PO; +XANA0.25 PO; +fentaNYL 100 MCG/2 ML INJECTION As Ordered ONE
[2024-07-08] MEDS: OFLOXACIN 0.3 % (OCUFLOX) OPTH SOL 5ML OS ONE (08:20)
[2024-07-08] MEDS: LIDOCAINE 3.5 % 1ML OPHTH TOPICAL GEL OU ONE (08:20)
[2024-07-08] MEDS: ATROPINE SULFATE 1% OPHTH SOLN 2ML BTL OS SCH (08:37)
[2024-07-08] MEDS: PHENYLEPHRINE 2.5% OPHTH SOL 2ML OS SCH (08:37)
[2024-07-08] MEDS: TROPICAMIDE 1% OPHTH SOLN 15ML OS SCH (08:37)
[2024-07-08] MEDS: LIDOCAINE 1% SDV 5ML VIAL As Ordered ONE (08:57)
[2024-07-08] MEDS: BSS IRRIG/VANCO(10MG)/TOBRA(5MG)/EPINEPH(1:1000-0.5CC)500ML BAG-ORONLY As Ordered ONE (08:57)
[2024-07-08] MEDS: CEFUROXIME 1MG/0.1ML INTRACAMERAL INJ As Ordered ONE (08:57)
[2024-07-08] MEDS: TRIAMCINOLONE ACETONIDE SUSP 40MG/ML 1ML VIAL As Ordered ONE (09:13)
[2024-07-08 09:22] VITALS: BP 147/67; TEMP 96.8; O2SAT 97
== END 2024-07-08 09:40 | disposition home or self-care (01) ==
LOC: M SDC 07:55
PROVIDERS: ATTEND Ophthalmology
DX: H25.12 Age-related nuclear cataract, left eye (principal); I25.119 Atherosclerotic heart disease of native coronary artery with unspecified angina pectoris; Z95.5 Presence of coronary angioplasty implant and graft; E11.9 Type 2 diabetes mellitus without complications; G47.30 Sleep apnea, unspecified; Z88.0 Allergy status to penicillin; Z88.8 Allergy status to other drugs, medicaments and biological substances; F17.210 Nicotine dependence, cigarettes, uncomplicated; Z79.899 Other long term (current) drug therapy
CPT/HCPCS: 66984; 92015; J0697; J2250; J3010; J3301; V2788

== ENCOUNTER 2024-07-15 10:15 | Day surgery (SDC) | payer MEDICARE ==
[~2024-07-15] VITALS: Ht 162.6 cm; Wt 87.4 kg
[~2024-07-15 10:15] MED LIST changes: -MIDAZOLAM INJ 2MG/2ML VIAL As Ordered ONE; +PHENYLEPHRINE 10% OPHTH SOL 5ML OD PRN; -PHENYLEPHRINE 10% OPHTH SOL 5ML OS PRN
[2024-07-15] MEDS: OFLOXACIN 0.3 % (OCUFLOX) OPTH SOL 5ML OD ONE (10:46)
[2024-07-15] MEDS: PHENYLEPHRINE 2.5% OPHTH SOL 2ML OD SCH (10:46)
[2024-07-15] MEDS: TROPICAMIDE 1% OPHTH SOLN 15ML OD SCH (10:46)
[2024-07-15] MEDS: LIDOCAINE 3.5 % 1ML OPHTH TOPICAL GEL OU ONE (10:46)
[2024-07-15] MEDS: ATROPINE SULFATE 1% OPHTH SOLN 2ML BTL OD SCH (10:46)
[2024-07-15] MEDS ORDERED: MIDAZOLAM INJ 2MG/2ML VIAL As Ordered ONE (11:24)
[2024-07-15] MEDS: BSS IRRIG/VANCO(10MG)/TOBRA(5MG)/EPINEPH(1:1000-0.5CC)500ML BAG-ORONLY As Ordered ONE (11:29)
[2024-07-15] MEDS: LIDOCAINE 1% SDV 5ML VIAL As Ordered ONE (11:29)
[2024-07-15] MEDS: MOXIFLOXACIN 0.6MG/0.4ML INTRAOCULAR SYRINGE As Ordered ONE (11:29)
[2024-07-15] MEDS: TRIAMCINOLONE ACETONIDE SUSP 40MG/ML 1ML VIAL As Ordered ONE (11:38)
[2024-07-15 11:47] VITALS: BP 197/86; TEMP 97.2; O2SAT 98
== END 2024-07-15 12:20 | disposition home or self-care (01) ==
LOC: M SDC 10:15
PROVIDERS: ATTEND Ophthalmology
DX: H25.11 Age-related nuclear cataract, right eye (principal); I20.9 Angina pectoris, unspecified; E11.9 Type 2 diabetes mellitus without complications; G47.30 Sleep apnea, unspecified; Z95.5 Presence of coronary angioplasty implant and graft; Z98.42 Cataract extraction status, left eye; F17.200 Nicotine dependence, unspecified, uncomplicated; Z88.0 Allergy status to penicillin; Z88.8 Allergy status to other drugs, medicaments and biological substances; Z79.899 Other long term (current) drug therapy
CPT/HCPCS: 66984; 92015; J2250; J3010; J3301; V2788

== ENCOUNTER → 2025-01-29 | Outpatient (CLI) | payer MEDICARE ==
[~2025-01-29] MED LIST changes: +FAMO40TA3; +GASTROGRAFIN SOLUTION 30ML ONE; +ISOVUE-370 76% 100ML VIAL ONE; +PANT40TA29; -PHENYLEPHRINE 10% OPHTH SOL 5ML OD PRN; +POTA1TAB23; -fentaNYL 100 MCG/2 ML INJECTION As Ordered ONE
== END ==
LOC: M PLAIMG 09:11
PROVIDERS: ATTEND Nurse Practitioner Women's Health
DX: D72.9 Disorder of white blood cells, unspecified (principal); R11.2 Nausea with vomiting, unspecified; K59.00 Constipation, unspecified; K57.30 Diverticulosis of large intestine without perforation or abscess without bleeding
CPT/HCPCS: 71260; 74177; Q9963; Q9967

== ENCOUNTER → 2025-05-20 | Outpatient (REF) ==
[~2025-05-20] MED LIST changes: -BYDU2INJ7 INJ; +EXEN2AUT INJ; -FAMO40TA3; +FAMO40TA3 PO; -GASTROGRAFIN SOLUTION 30ML ONE; +ISOS-18 PO; -ISOS30TAB PO; -ISOVUE-370 76% 100ML VIAL ONE; +OZEMPIC INJ; -PANT40TA29; +PANT40TA29 PO; -POTA1TAB23; +POTA1TAB23 PO; +SENN-225 PO; -SENO8.6T5 PO; +TURM1CAP7 PO; -TURM500C3 PO; +VALS1TAB68 PO
== END ==
PROVIDERS: ATTEND Physician Assistant
DX: I95.9 Hypotension, unspecified (principal)

== ENCOUNTER → 2025-05-21 | Outpatient (REF) ==
[2025-05-21 10:29] LABS: PLATELET COUNT, AUTOMATED 315 10^3/uL (150-450)
[2025-05-21 10:57] LABS: CALCIUM LEVEL 8.8 MG/DL (8.3-10.6); CARBON DIOXIDE LEVEL 23.0 MMOL/L (20-31); CHLORIDE LEVEL 99.0 MMOL/L (98-107); CREATININE FOR GFR 1.06 MG/DL (0.55-1.30); GLOMERULAR FILTRATION RATE 53.8 (>39); POTASSIUM SERUM 4.1 MMOL/L (3.5-5.1); SODIUM LEVEL 134.0 MMOL/L (136-145)
== END ==
PROVIDERS: ATTEND Physician Assistant
DX: E87.6 Hypokalemia (principal)

== ENCOUNTER → 2025-05-31 | Outpatient (REF) | payer MEDICARE | LOC: M RAD 12:55 → EDSTATUS 06-01 08:12 | PROVIDERS: ATTEND Physician Assistant | DX: S32.010A Wedge compression fracture of first lumbar vertebra, initial encounter for closed fracture (principal) ==

== ENCOUNTER → 2025-06-11 | Outpatient (REF) | PROVIDERS: ATTEND Physician Assistant | DX: M79.642 Pain in left hand (principal) ==

== ENCOUNTER → 2025-06-17 | Outpatient (REF) ==
[2025-06-17 13:29] LABS: PLATELET COUNT, AUTOMATED 354 10^3/uL (150-450)
[2025-06-17 14:02] LABS: CALCIUM LEVEL 9.6 MG/DL (8.3-10.6); CARBON DIOXIDE LEVEL 25.0 MMOL/L (20-31); CHLORIDE LEVEL 98.0 MMOL/L (98-107); CREATININE FOR GFR 1.03 MG/DL (0.55-1.30); GLOMERULAR FILTRATION RATE 55.7 (>39); POTASSIUM SERUM 4.5 MMOL/L (3.5-5.1); SODIUM LEVEL 136.0 MMOL/L (136-145)
== END ==
PROVIDERS: ATTEND Physician Assistant
DX: I95.9 Hypotension, unspecified (principal)

== ENCOUNTER → 2025-06-30 | Outpatient (REF) | payer MEDICARE | LOC: M RAD 09:24 → EDSTATUS 07-01 08:17 | PROVIDERS: ATTEND Physician Assistant | DX: S32.010A Wedge compression fracture of first lumbar vertebra, initial encounter for closed fracture (principal) ==

== ENCOUNTER → 2025-07-07 | Outpatient (REF) ==
[2025-07-07 14:08] LABS: CALCIUM LEVEL 9.1 MG/DL (8.3-10.6); CARBON DIOXIDE LEVEL 26.0 MMOL/L (20-31); CHLORIDE LEVEL 98.0 MMOL/L (98-107); CREATININE FOR GFR 1.04 MG/DL (0.55-1.30); GLOMERULAR FILTRATION RATE 55.0 (>39); POTASSIUM SERUM 3.5 MMOL/L (3.5-5.1); SODIUM LEVEL 133.0 MMOL/L (136-145)
== END ==
PROVIDERS: ATTEND Physician Assistant
DX: I10 Essential (primary) hypertension (principal)

== ENCOUNTER → 2025-07-09 | Outpatient (REF) ==
[2025-07-09 15:24] LABS: APPEARANCE, URINE HAZY (CLEAR); BACTERIA, URINE AUTO 2+ (NEGATIVE); BILIRUBIN, URINE AUTO NEGATIVE (NEGATIVE); BLOOD, URINE BLOOD NEGATIVE (NEGATIVE); GLUCOSE, URINE (UA) AUTO 1+ mg/dL (NEGATIVE); KETONE, URINE AUTO NEGATIVE (NEGATIVE); LEUKOCYTE ESTERASE, URINE AUTO 3+ (NEGATIVE); MUCUS, URINE MODERATE (NEGATIVE); NITRITE, URINE AUTO NEGATIVE (NEGATIVE); PROTEIN, URINE AUTO 1+ mg/dL (NEGATIVE); RBC, URINE AUTO 1 /HPF (0-3); SPECIFIC GRAVITY URINE AUTO 1.015 (1.002-1.035); SQUAMOUS EPITHELIAL CELL UR AU 12 /HPF (0-6); UROBILINOGEN, URINE AUTO 0.2 mg/dL (0.0-2.0); WBC, URINE AUTO 30 /HPF (0-3)
[2025-07-09 17:52] LABS: PLATELET COUNT, AUTOMATED 351 10^3/uL (150-450)
[2025-07-09 18:17] LABS: CALCIUM LEVEL 9.0 MG/DL (8.3-10.6); CARBON DIOXIDE LEVEL 23.0 MMOL/L (20-31); CHLORIDE LEVEL 100.0 MMOL/L (98-107); CREATININE FOR GFR 1.0 MG/DL (0.55-1.30); GLOMERULAR FILTRATION RATE 57.7 (>39); MAGNESIUM LEVEL 1.6 MG/DL (1.8-2.4); PHOSPHORUS LEVEL 3.5 MG/DL (2.4-5.1); POTASSIUM SERUM 3.7 MMOL/L (3.5-5.1); SODIUM LEVEL 134.0 MMOL/L (136-145)
== END ==
PROVIDERS: ATTEND Physician Assistant
DX: N18.6 End stage renal disease (principal)

== ENCOUNTER → 2025-07-14 | Outpatient (REF) ==
[2025-07-14 11:25] LABS: PLATELET COUNT, AUTOMATED 336 10^3/uL (150-450)
[2025-07-14 11:42] LABS: ESTIMATED AVERAGE GLUCOSE 137.0 MG/DL (60-110)
[2025-07-14 11:50] LABS: CALCIUM LEVEL 9.3 MG/DL (8.3-10.6); CARBON DIOXIDE LEVEL 26.0 MMOL/L (20-31); CHLORIDE LEVEL 97.0 MMOL/L (98-107); CREATININE FOR GFR 1.04 MG/DL (0.55-1.30); GLOMERULAR FILTRATION RATE 55.0 (>39); POTASSIUM SERUM 3.4 MMOL/L (3.5-5.1); SODIUM LEVEL 135.0 MMOL/L (136-145)
== END ==
PROVIDERS: ATTEND Physician Assistant
DX: E11.9 Type 2 diabetes mellitus without complications (principal)